=== PATIENT | male | born 1985 | race Caucasian/White ===

== ENCOUNTER 2016-11-01 18:07 | Emergency (ER) | payer OTHER ==
[2016-11-01] MEDS ORDERED: PROMETHAZINE HCL 25 MG TABLET PO ONE (19:11)
[2016-11-01] MEDS ORDERED: TRAMADOL HCL 50 MG TABLET PO ONE (19:11)
--- NOTE | 2016-11-01 19:13 | ER Document Report ---
ED Medical Screen (RME) - General Chief Complaint: Pain All Over Stated Complaint: BODY ACHES Notes: Patient says he's having pain that's starting at the lower back of his neck where he has a lump and the pain goes around to the front of his head and his jaw and his face and his arms and shoulders. These symptoms have been present for about a month. Patient has concerned that he has reoccurrence of a cancer that was diagnosed at that site 6 years ago when he lived in [place]. He says that he had chemotherapy for that lesion and is concerned that it is coming back. Patient has what appears to be a cyst on the back of his neck with definite fluctuance. Tender to the touch. Patient says that as a result of this lump on the back of his neck, he has " lost everything". Says that he has lost his job and everything. TRAVEL OUTSIDE OF THE [place] IN LAST 30 DAYS: No - Related Data Allergies/Adverse Reactions: No Known Allergies Allergy (Unverified 11/01/16 18:46) Past Medical History Renal/ Medical History: Denies: Hx Peritoneal Dialysis Physical Exam - Vital signs Vitals: Temp Pulse Resp BP Pulse Ox 98 F 73 17 145/80 H 100 11/01/16 18:46 11/01/16 18:46 11/01/16 18:46 11/01/16 18:46 11/01/16 18:46 Course - Vital Signs Vital signs: Temp Pulse Resp BP Pulse Ox 98 F 73 17 145/80 H 100 11/01/16 18:46 11/01/16 18:46 11/01/16 18:46 11/01/16 18:46 11/01/16 18:46
[2016-11-01 19:32] LABS: ABSOLUTE BASOPHILS # (AUTO) 0.1 10^3/uL (0.0-0.2); ABSOLUTE EOSINOPHILS # (AUTO) 0.1 10^3/uL (0.0-0.6); ABSOLUTE LYMPHOCYTES (AUTO) 2.1 10^3/uL (0.5-4.7); ABSOLUTE MONOCYTES (AUTO) 0.7 10^3/uL (0.1-1.4); ABSOLUTE NEUT (AUTO) 3.7 10^3/uL (1.7-8.2); BASOPHILS % (AUTO) 1.3 % (0-2); EOSINOPHILS % (AUTO) 1.4 % (0-6); HEMATOCRIT 45.2 % (37.9-51.0); HEMOGLOBIN 15.3 g/dL (13.5-17.0); HGB HCT DIFFERENCE 0.7; LYMPHOCYTES % (AUTO) 31.2 % (13-45); MEAN CORPUSCULAR HEMOGLOBIN 30.6 pg (27.0-33.4); MEAN CORPUSCULAR HGB CONC 33.8 g/dL (32.0-36.0); MEAN CORPUSCULAR VOLUME 91 fl (80-97); RED BLOOD COUNT 4.99 10^6/uL (4.35-5.55); RED CELL DISTRIBUTION WIDTH 13.8 % (11.5-14.0); SEGMENTED NEUTROPHILS % (AUTO) 55.1 % (42-78); WHITE BLOOD COUNT 6.7 10^3/uL (4.0-10.5)
[2016-11-01 19:36] LABS: APPEARANCE,URINE SLIGHTLY-CLOUDY; BILIRUBIN,URINE NEGATIVE (NEGATIVE); GLUCOSE, URINE NEGATIVE (NEGATIVE); KETONES,URINE TRACE mg/dL (NEGATIVE); LEUKOCYTE ESTERASE,URINE MODERATE (NEGATIVE); NITRITE,URINE NEGATIVE (NEGATIVE); PROTEIN,URINE NEGATIVE (NEGATIVE); URINE SPECIFIC GRAVITY 1.034; UROBILINOGEN,URINE NEGATIVE mg/dL (<2.0)
[2016-11-01 19:50] LABS: ALANINE AMINOTRANSFERASE 59 U/L (21-72); ALBUMIN 4.5 g/dL (3.5-5.0); ALKALINE PHOSPHATASE 59 U/L (38-126); ANION GAP 12 (5-19); ASPARTATE AMINO TRANSFERASE 36 U/L (17-59); BILIRUBIN,DIRECT 0.3 mg/dL (0.0-0.4); BILIRUBIN,TOTAL 0.6 mg/dL (0.2-1.3); BLOOD UREA NITROGEN 23 mg/dL (7-20); CALCIUM 9.4 mg/dL (8.4-10.2); CARBON DIOXIDE 26 mmol/L (22-30); CHLORIDE 104 mmol/L (98-107); CREATININE RESULT 0.94 mg/dL (0.52-1.25); GLUCOSE 94 mg/dL (75-110); POTASSIUM 4.2 mmol/L (3.6-5.0); SODIUM 141.9 mmol/L (137-145); TOTAL PROTEIN 6.9 g/dL (6.3-8.2)
[2016-11-01 19:53] LABS: URINE BARBITURATES SCREEN NEGATIVE; URINE METHADONE SCREEN NEGATIVE; URINE OPIATES LOW UNCONFIRMED POSITIVE; URINE PHENCYCLIDINE SCREEN NEGATIVE
[2016-11-01] MEDS ORDERED: LIDOCAINE 1% INJ-PF (10 MG/ML) 30 ML SDV INJ ONE (21:22)
[2016-11-01] MEDS ORDERED: DIPH/PERTUSS(ACELL)/TETANUS VAC/PF 0.5 ML SYR (>=10YO) IM ONE (21:23)
--- NOTE | 2016-11-01 22:10 | ER Document Report ---
ED General - General Chief Complaint: Pain All Over Stated Complaint: BODY ACHES Mode of Arrival: Ambulatory Information source: Patient Notes: 31 y/o M presents to ED c/o raised area of tenderness to right upper back/ lower neck. Reports first noticed it approximately 1 month ago and states has been increasing in size. Reports pain from area radiates to right upper shoulder and arm. Also reports has had generalized body aches, chills, and intermittent dysuria over the last week. Denies objective fever, chest pain, sob , back pain, penile discharge, testicular pain or swelling, n/v, flank pain, extremity weakness/numbness/tingling, saddle numbness or incontinence. States unknown last tetanus vaccination. 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 Denies surgical hx. Admits to occasional use of marijuana, cocaine, LSD, mushrooms, and marijuana. TRAVEL OUTSIDE OF THE [place] IN LAST 30 DAYS: No - HPI Onset/Duration: Gradual Quality of pain: Achy Severity: Moderate Pain Level: 3 Similar symptoms previously: Yes Recently seen / treated by doctor: No - Related Data Allergies/Adverse Reactions: No Known Allergies Allergy (Unverified 11/01/16 18:46) Past Medical History - General Information source: Patient - Social History Smoking Status: Current Every Day Smoker Frequency of alcohol use: Occasional Drug Abuse: Cocaine, Marijuana, Other Lives with: Friend Family History: Reviewed & Not Pertinent Patient has suicidal ideation: No Patient has homicidal ideation: No Renal/ Medical History: Denies: Hx Peritoneal Dialysis Malignancy Medical History: Reports Other Surgical Hx: Negative - Immunizations Hx Diphtheria, Pertussis, Tetanus Vaccination: Yes - unknown last Review of Systems - Review of Systems Constitutional: See HPI EENT: No symptoms reported Cardiovascular: No symptoms reported Respiratory: No symptoms reported Gastrointestinal: No symptoms reported Genitourinary: See HPI Male Genitourinary: No symptoms reported Musculoskeletal: See HPI Skin: See HPI Hematologic/Lymphatic: No symptoms reported Neurological/Psychological: No symptoms reported -: Yes All other systems reviewed and negative Physical Exam - Vital signs Vitals: Temp Pulse Resp BP Pulse Ox 98 F 73 17 145/80 H 100 11/01/16 18:46 11/01/16 18:46 11/01/16 18:46 11/01/16 18:46 11/01/16 18:46 - General General appearance: Appears well, Alert In distress: None - HEENT Head: Normocephalic, Atraumatic Eyes: Normal Conjunctiva: Normal Pupils: PERRL Tympanic membrane: Normal Sinus: Normal Nasal: Normal Mouth/Lips: Normal Mucous membranes: Normal, Moist Pharynx: Normal. No: Blood in hypopharynx, Erythema, Exudate, Peritonsillar abscess, Post nasal drainage, Retropharyngeal abscess, Tonsillar hypertrophy, Uvular edema, Potential airway comprom., Other Neck: Normal. No: Anterior cervical chain, Posterior cervical chain, Lymphadenopathy, Meningismus, Subcutaneous emphysema - Respiratory Respiratory status: No respiratory distress Chest status: Nontender Breath sounds: Normal Chest palpation: Normal - Cardiovascular Rhythm: Regular Heart sounds: Normal auscultation Murmur: No Pulses: Normal: Radial, Posterior tibial, Dorsalis pedis Normal capillary refill: Yes - Abdominal Inspection: Normal Distension: No distension Bowel sounds: Normal Tenderness: Nontender Organomegaly: No organomegaly - Back Back: Normal, Nontender - Full ROM with paresthesias or neurological deficits.. No: Tender, Deformity/step-off, CVA tenderness, Vertebra tenderness, Scars, Scoliosis, Wounds, Other - Extremities General upper extremity: Normal inspection, Nontender, Normal color, Normal ROM , Normal strength, Normal temperature. No: Edema General lower extremity: Normal inspection, Nontender, Normal color, Normal ROM , Normal strength, Normal temperature, Normal weight bearing. No: Edema, Debbie' s sign - Neurological Neuro grossly intact: Yes Cognition: Normal Orientation: AAOx4 Thompson Coma Scale Eye Opening: Spontaneous Thompson Coma Scale Verbal: Oriented Thompson Coma Scale Motor: Obeys Commands [place] Coma Scale Total: 15 Speech: Normal Cranial nerves: Normal Cerebellar coordination: Normal Motor strength normal: LUE, RUE, LLE, RLE Sensory: Normal - Psychological Associated symptoms: Normal affect, Normal mood - Skin Skin Temperature: Warm Skin Moisture: Dry Skin Color: Normal Skin irregularity: Abscess - pt has approximately 3 cm diameter raised slightly erythematous and tender area with fluctuance to upper back/right lower neck just lateral to spine. Not hard or fixed and does not appear to extend into spinal area. area is mobile and soft and although erythematous his neck is diffusely the same color appears to be due to prolonged sun exposure. Course - Re-evaluation Re-evalutation: 11/02/16 02:30 Patient hemodynamically stable, in no distress, afebrile, nontoxic. Tolerating oral fluids without difficulty or vomiting. Tdap updated. Lab results show moderate leukocyte Estrace and wbc's in UA, urine culture obtained. Chlamydia/ gonorrhea screen negative. Patient cyst-like area to posterior lower neck appears to be likely benign lipoma versus cyst as it is mobile, soft, and fluctuant with no localized erythema, warmth, cellulitis, or purulance suggestive of abscess. This was discussed with patient and he was encouraged to monitor it closely for changes or worsening and follow-up with dermatology and/ or surgicalist for further evaluation due to his reported hx of cancer although appears much less likely at this time. Will treat with course of Bactrim pending urine cultures. Pt appears stable for discharge and agrees with home care, follow-up, and ED return precautions. Social work will be consulted per nursing staff as patient reports he is currently homeless. - Vital Signs Vital signs: Temp Pulse Resp BP Pulse Ox 98 F 73 17 145/80 H 100 11/01/16 18:46 11/01/16 18:46 11/01/16 18:46 11/01/16 18:46 11/01/16 18:46 - Laboratory Result Diagrams: 11/01/16 19:15 11/01/16 19:15 Laboratory results interpreted by me: 11/01/16 11/01/16 19:15 19:20 BUN 23 H Urine Ketones TRACE H Ur Leukocyte Esterase MODERATE H Urine Ascorbic Acid 40 H - Diagnostic Test Radiology reviewed: Image reviewed, Reports reviewed Procedures - Incision and Drainage Posterior Neck Time completed: 23:30 Type: Simple Anesthetic type: 1% Lidocaine mL's of anesthetic: 2 I&D procedure: Betadine prep applied, Chlorprep applied Incision Method: Incision made with needle Amount/type of drainage: serous, clear. no purulent or bloody drainage Discharge - Discharge Clinical Impression: Subcutaneous cyst UTI (urinary tract infection) Qualifiers: Urinary tract infection type: site unspecified Hematuria presence: without hematuria Qualified Code(s): N39.0 - Urinary tract infection, site not specified Condition: Stable Disposition: HOME, SELF-CARE Instructions: Anti-Inflammatory Medication ([facility]), Cocaine Abuse ([facility]), Tetanus Immunization Given ([facility]), Trimethoprim-Sulfa ([facility]), Urinary Tract Infection ([facility] ), Growth or Mass, Pending Workup ([facility]) Additional Instructions: Your tests today show a likely urinary tract infection. A culture of your urine has been obtained. If bacterial growth is noted that requires a change in your antibiotic regimen you will be contacted within two days with instructions on treatment. If you do not receive a call, please call back for results. Your tests for chlamydia and gonorrhea were negative. Drink plenty of fluids. Follow-up with pattern worker/surgeon to evaluate the cyst on your neck. Follow-up with your primary care provider this week. Return to the Emergency Department for any worsening symptoms or concerns. Prescriptions: Naproxen [Naprosyn 375 Mg Tablet] 375 mg PO BIDP PRN #10 tablet PRN Reason: Sulfamethoxazole/Trimethoprim [Bactrim Ds Tablet] 1 tab PO BID 10 Days Forms: Elevated Blood Pressure Referrals: BARB CRISOSTOMO DO [ACTIVE STAFF] - Follow up in 3-5 days PRICE MCWILLIAMS MD [ACTIVE STAFF] - Follow up in 3-5 days [facility] [NO LOCAL MD] - Follow up tomorrow
[2016-11-02] MEDS ORDERED: NAPROXEN 250 MG TABLET PO ONE (00:05)
[2016-11-02 01:55] LABS: CHLAM PCR NOT DETECTED (NOT DETECT)
[2016-11-02] MEDS ORDERED: SULFAMETHOXAZOLE/TRIMETHOPRIM 800-160 MG TABLET PO ONE (02:34)
[2016-11-02 08:44] VITALS: BP 139/77
== END 2016-11-02 12:15 | disposition home or self-care (01) ==
LOC: ER 18:07
PROC: 0H94XZZ Drainage of Neck Skin, External Approach (ICD-10-PCS; principal; 2016-11-01)
DX: L72.3 Sebaceous cyst (principal); N39.0 Urinary tract infection, site not specified; R68.83 Chills (without fever); F17.200 Nicotine dependence, unspecified, uncomplicated; Z23 Encounter for immunization; Z59.0 Homelessness
CPT/HCPCS: 99284; 90471; 36415; 87086; 85025; 80053; 81001; 80307; 87491; 87591; 72050; 90715; 10060; J3490; A6266

== ENCOUNTER 2016-11-12 11:47 | Emergency (ER) | payer SELFPAY ==
[2016-11-12 12:00] VITALS: BP 123/79
== END 2016-11-12 12:30 | disposition left against medical advice (07) ==
LOC: ER 11:47
DX: Z53.21 Procedure and treatment not carried out due to patient leaving prior to being seen by health care provider (principal)

== ENCOUNTER 2016-11-19 01:21 | Emergency (ER) | payer SELFPAY ==
--- NOTE | 2016-11-19 02:00 | ER Document Report ---
ED General - General Chief Complaint: Suicidal Ideation Stated Complaint: PSYCH EVALUATION Notes: Patient is a 31-year-old male with past medical history of bipolar disorder and PTSD who presents with concerns of suicidal ideation. Patient states he has felt suicidal for many years but has never been this serious in the past. States that he plans to kill himself either by overdosing on heroin or jumping off a bridge. He is homeless, has no family in the area, no social safety net, he has lost his job, custody this child, and has no money. 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 He denies any acute medical complaints today. TRAVEL OUTSIDE OF THE [place] IN LAST 30 DAYS: No - Related Data Allergies/Adverse Reactions: No Known Allergies Allergy (Verified 11/19/16 01:26) Past Medical History - General Information source: Patient - Social History Smoking Status: Never Smoker Frequency of alcohol use: None Drug Abuse: None Lives with: Homeless Family History: Reviewed & Not Pertinent Patient has suicidal ideation: Yes Patient has homicidal ideation: No Renal/ Medical History: Denies: Hx Peritoneal Dialysis - Immunizations Hx Diphtheria, Pertussis, Tetanus Vaccination: Yes - unknown last Review of Systems - Review of Systems Notes: Constitutional: Negative for fever. HENT: Negative for sore throat. Eyes: Negative for visual changes. Cardiovascular: Negative for chest pain. Respiratory: Negative for shortness of breath. Gastrointestinal: Negative for abdominal pain, vomiting or diarrhea. Genitourinary: Negative for dysuria. Musculoskeletal: Negative for back pain. Skin: Negative for rash. Neurological: Negative for headaches, weakness or numbness. 10 point ROS negative except as marked above and in HPI. Physical Exam - Vital signs Vitals: Temp Pulse Resp BP Pulse Ox 97.7 F 70 20 135/92 H 100 11/19/16 01:26 11/19/16 01:26 11/19/16 01:26 11/19/16 01:11/19/16 01:26 Interpretation: Normal Notes: PHYSICAL EXAMINATION: GENERAL: Well-appearing, well-nourished and in no acute distress. HEAD: Atraumatic, normocephalic. EYES: Pupils equal round and reactive to light, extraocular movements intact, sclera anicteric, conjunctiva are normal. ENT: nares patent, oropharynx clear without exudates. Moist mucous membranes. NECK: Normal range of motion, supple without lymphadenopathy LUNGS: Breath sounds clear to auscultation bilaterally and equal. No wheezes rales or rhonchi. HEART: Regular rate and rhythm without murmurs ABDOMEN: Soft, nontender, normoactive bowel sounds. No guarding, no rebound. No masses appreciated. EXTREMITIES: Normal range of motion, no pitting or edema. No cyanosis. NEUROLOGICAL: No focal neurological deficits. Moves all extremities spontaneously and on command. PSYCH: Poor eye contact, stairs of the ground. Very depressed mood and affect. SKIN: Warm, Dry, normal turgor, no rashes or lesions noted. Course - Re-evaluation Re-evalutation: 11/19/16 01:57 Patient presents with suicidal ideation with a plan to kill himself by jumping off a bridge or overdosing on heroin. Patient appears very serious about this and I believe he is very high risk for completion of suicide. The patient states explicitly "I am going to kill myself. I hate this world and I don't want to be here anymore". He has a history of PTSD and bipolar and has not been on any medications for over 12 years. He has poor eye contact and appears extremely depressed on interview. He has no social resources, no local family, he is homeless, does not have a job. He has no capacity to follow-up as an outpatient. He has a clear plan and has thought it through. I do not feel this patient will be at any point safe for psychiatric clearance or discharged from this hospital. He should not be discharged unless it is to an inpatient facility. He denies any acute medical complaints. Screening laboratories will be sent. A medical screening exam is unremarkable. - Vital Signs Vital signs: Temp Pulse Resp BP Pulse Ox 97.7 F 70 20 135/92 H 100 11/19/16 01:26 11/19/16 01:26 11/19/16 01:26 11/19/16 01:26 11/19/16 01:26
[2016-11-19] MEDS ORDERED: DIAZEPAM 5 MG TABLET PO ONE ×2 (02:02→11:04)
[2016-11-19 02:48] LABS: ABSOLUTE BASOPHILS # (AUTO) 0.1 10^3/uL (0.0-0.2); ABSOLUTE EOSINOPHILS # (AUTO) 0.1 10^3/uL (0.0-0.6); ABSOLUTE MONOCYTES (AUTO) 0.7 10^3/uL (0.1-1.4); ABSOLUTE NEUT (AUTO) 3.3 10^3/uL (1.7-8.2); BASOPHILS % (AUTO) 1.1 % (0-2); EOSINOPHILS % (AUTO) 1.5 % (0-6); HEMATOCRIT 48.2 % (37.9-51.0); HEMOGLOBIN 16.7 g/dL (13.5-17.0); HGB HCT DIFFERENCE 1.9; LYMPHOCYTES % (AUTO) 32.2 % (13-45); MEAN CORPUSCULAR HEMOGLOBIN 31.2 pg (27.0-33.4); MEAN CORPUSCULAR HGB CONC 34.7 g/dL (32.0-36.0); MEAN CORPUSCULAR VOLUME 90 fl (80-97); MONOCYTES % (AUTO) 11.8 % (3-13); RED BLOOD COUNT 5.36 10^6/uL (4.35-5.55); RED CELL DISTRIBUTION WIDTH 14.1 % (11.5-14.0); SEGMENTED NEUTROPHILS % (AUTO) 53.4 % (42-78); WHITE BLOOD COUNT 6.2 10^3/uL (4.0-10.5)
[2016-11-19 03:09] LABS: ALANINE AMINOTRANSFERASE 45 U/L (21-72); ALBUMIN 4.9 g/dL (3.5-5.0); ALKALINE PHOSPHATASE 62 U/L (38-126); ANION GAP 13 (5-19); ASPARTATE AMINO TRANSFERASE 22 U/L (17-59); BILIRUBIN,DIRECT 0.3 mg/dL (0.0-0.4); BLOOD UREA NITROGEN 24 mg/dL (7-20); CALCIUM 9.9 mg/dL (8.4-10.2); CARBON DIOXIDE 28 mmol/L (22-30); CHLORIDE 100 mmol/L (98-107); CREATININE RESULT 1.01 mg/dL (0.52-1.25); GLUCOSE 102 mg/dL (75-110); POTASSIUM 4.6 mmol/L (3.6-5.0); SODIUM 141.1 mmol/L (137-145); TOTAL PROTEIN 7.5 g/dL (6.3-8.2)
[2016-11-19 03:10] LABS: ALCOHOL < 10 mg/dL (NONE DETECTED)
[2016-11-19 03:18] LABS: APPEARANCE,URINE CLEAR; BILIRUBIN,URINE NEGATIVE (NEGATIVE); GLUCOSE, URINE NEGATIVE (NEGATIVE); KETONES,URINE NEGATIVE (NEGATIVE); LEUKOCYTE ESTERASE,URINE TRACE (NEGATIVE); NITRITE,URINE NEGATIVE (NEGATIVE); PROTEIN,URINE NEGATIVE (NEGATIVE); URINE SPECIFIC GRAVITY 1.017; UROBILINOGEN,URINE NEGATIVE mg/dL (<2.0)
[2016-11-19 03:44] LABS: URINE BARBITURATES SCREEN NEGATIVE; URINE METHADONE SCREEN NEGATIVE; URINE OPIATES LOW NEGATIVE; URINE PHENCYCLIDINE SCREEN NEGATIVE
--- NOTE | 2016-11-19 10:23 | EKG REPORT ---
SEVERITY:- ABNORMAL ECG - SINUS RHYTHM CONSIDER ANTEROSEPTAL INFARCT : Confirmed by: Washington Cruz 19-Nov-2016 10:22:52
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
--- NOTE | 2016-11-19 20:34 | ER Document Report ---
Doctor's Note Notes: 11/19/16 20:33 As the rounding physician for our psychiatric patients, I have reviewed the chart, vitals, lab work. Patient has been examined and noted to be stable at this time . I am awaiting mental health in [place] regarding placement
--- NOTE | 2016-11-20 09:23 | ER Document Report ---
Doctor's Note Notes: 11/20/16 21:14 As the rounding physician for our psychiatric patients, I have reviewed the chart, vitals, lab work. Patient has been examined and noted to be mildly agitated and was given medication, I'm awaiting mental health disposition
[2016-11-20] MEDS ORDERED: DIAZEPAM 5 MG TABLET PO ONE (11:07)
[2016-11-20] MEDS ORDERED: HYDROXYZINE PAMOATE 50 MG CAPSULE PO ONE (14:41)
--- NOTE | 2016-11-20 18:02 | PSYCHOLOGICAL NOTE ---
Psych Note - Psych Note Psych Note: Patient today is irritable and again presents stating the local outpatient resources are insufficient to meet his needs. Patient is unable to reports what he thinks will assist him by going inpatient. Patient is alert and oriented. Patient's mood was euthymic with normal affect. Patient endorsed suicidal ideations and reports he would overdose on heroin and or jump off of a bridge. Neither of these means are accessible to the patient. Patient denies homicidal ideations. Patient further threatened to commit suicide in this parking lot if he gets referred to [facility]. Patient denies A/VH; delusions not noted. Thought processes were goal oriented towards going inpatient and guarded in regards to the fax of his life. Patient has made multiple requests for Valium. Conversational speech was WNL for rate, tone, and prosody. Intellectual abilities were estimated within low average range. Attention and focus were fair. Insight, judgment, impulse control were poor. Unspecified depressive disorder per history Patient is recommended for rescind IVC and discharged to follow-up i an outpatient provider. At this time it is felt the patient is attempting to meet his basic needs as well as feed his addiction habits through misuse of the emergency department and mental health systems. At this time it is felt the most appropriate plan of care is to coordinate services within the community for the patient. Patient has stated he cannot afford medications even off of the $4 list should he be prescribed them. At this time it would behoove the patient to be referred within the community, to obtain resources to assist with medication management through state-funded [facility]. Attempted to do so via business planner; however, patient terminated conversation and refused to accept referrals from that RN. At this time this department will no longer be seeking placement for this patient and it is not felt an appropriate plan of care. Patient requires assistance within the community he resides. Patient's needs at this time are social in nature. Patient reportedly followed up with various social security assessor agencies since his last discharge; however, he states they take too long. Should be noted there is no way to expedite services known to this clinician at this time. It is respectfully requested again that the use of narcotics and benzodiazepines be with held unless medically warranted do to it feeding and supporting his addicted habits. I have consulted with Dr. Hunt who is in agreement with the plan of care.
--- NOTE | 2016-11-21 14:47 | ER Document Report ---
Doctor's Note Notes: 11/21/16 14:44 As the rounding physician for our psychiatric patients, I have reviewed the chart, vitals, lab work. Patient has been examined and noted to be medically stable at this time . Patient continues to endorse active suicidal ideations. He states he is very frustrated and has nothing to live for and tells me he is thinking about jumping into traffic. Prior notes have been reviewed and there is some concern that patient has been noncompliant with the resources that have been given to him, as well as being manipulative and demanding. However, as he is still endorsing active suicidal ideation, will continue with psychiatric consultation. I am awaiting mental health in [facility] regarding placement.
--- NOTE | 2016-11-21 15:28 | PSYCHOLOGICAL NOTE ---
Psych Note - Psych Note Psych Note: Conducted check-in with the patient who is a 31-year-old male. Patient defiant towards discussing resources to in call clued calling [facility] to request case management assistance, and presenting to the homeless longterm. Patient adamant that he cannot go back there; however, when challenged regarding his reasoning he became defensive. Patient states he was only there for 3 days, but it is common for individuals to stay for 30 days with case management services. Patient states he has nothing to live for and will kill himself. Note, patient' s overall presentation is incongruent with extreme depression associated with suicide. Patient presents well groomed and interested in his physical appearance. Patient reports today to the M.D. that he "might as well kill himself in the room to show us he is serious." This is considered a manipulative tactic to remain in the department. Patient has additionally stated today that he thinks his best option now is to jump in front of a bus. What is known with individuals who do commit suicide, is that they have one plan that they are committed to, and often perseverate on. Research shows, individuals who are truly suicidal do not often have the energy to think of different options and plans. Patient at this time is unwilling to engage in alternative treatment planning. He just repeatedly states he needs a program. Patient continues to be nonspecific with his symptoms other than to say he is depressed. Patient does not present with flat affect. He does not present sad or tearful as often associated with some when he wants to by suicide. Patient has denied wanting to be started on an antidepressant to assist with his depression; however, has repeatedly requested Valium for nonspecific anxiety symptoms. Patient is alert and oriented mood is euthymic with normal affect patient reports suicidal ideations; however, does not commit to a specific plan, nor are the plans mentioned plausible. Patient denies homicidal ideations. Patient denies A/VH; delusions not noted. Thought processes were goal oriented towards remaining in the ER and or transferring to an inpatient unit. Conversational speech was WNL for rate, tone, and prosody. Attention and focus were fair. Insight, judgment, impulse control were poor. Unspecified depressive disorder Polysubstance abuse, per history Patient continues to be recommended for discharge and is considered psychiatrically cleared. As noted above, patient presents as though he is attempting to meet his basic needs through misuse and abuse of the emergency medical services as well as mental health system. Patient is unwilling to engage in treatment planning and states no services here in [place] are sufficient. Patient is unable or unwilling to report what an inpatient program will do for him. Patient has repeatedly declined an antidepressant, and only asked for Valium. I consulted with Dr. Hunt in regards to the care and management of this patient.
--- NOTE | 2016-11-22 09:38 | PSYCHOLOGICAL NOTE ---
Psych Note - Psych Note Psych Note: Conducted check-in with the patient who is a 31-year-old male. Patient states that he has not received any help; "you might as well just discharge me since no one is doing anything to help me." Clinician notes the patient has received resources and has refused to engage with social media content specialist discharge planning for further assistance. Patient disclosed that he has only been in the area for about a month. He was traveling from [place], [place], where he has lived all his life, to [place] for a job. He continued to disclose that he never made it there because he "blacked out and EMS brought him" to [facility]. He states he had a tumor on his neck that he did not receive treatment or any paperwork. Clinician notes the patient was seen on 11/01/2016. 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 He provided conflicting information to the attending physician when he then stated he took medication for 2 weeks and the "tumor" went away. During that visit he admitted to "occasional' use of marijuana, cocaine,LSD, and mushrooms. The attending physician discussed with the patient during that visit the "tumor" was most likely benign and to follow up with a business transformation manager. Patient was treated for UTI during that visit. First attempt at discharge, patient requested assistance because of a lack of resources stating he walked to [facility] (patient arrived EMS) Patient care note 0315. Patient did not take discharge paperwork as noted in discharge documentation on 11/02/2016 @ 1215. Patient states that he heard about [facility] after being discharged from [facility] on 11/01/2016, and they gave him medication that has helped reduce the size of his "tumor." It is noted the patient arrived to [facility] ED on 11/12/2016 by EMS and stated his medication was stolen then [facility]BS. Patient states duration of his suicidal thoughts has been "a couple of weeks; " clinician notes patient previously stated onset was gradual and the duration has been years (noted in Patient Care Triage Psych disorder/suicide 11/01/2016 note). Patient disclosed he called the crisis line and [employer] was called; he states [facility] brought him to [facility]. Clinician notes patient arrived in privately owned vehicle; as documented patient review visit summary. Clinician notes patient did not disclose suicidal ideation to any [facility] during previous two visits this month. Clinician contacted [facility], , he disclosed that he has known the patient 4 -5 years. He states they were roommate when they lived in [place]. He disclosed that he last spoke with the patient about a week ago and "he was in great shape, just homeless." The patient was with a "crazy girl" and ended up losing his housing. 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 He continued to state he has witness the patient have an anxiety attack and "it was horrible to watch" he was sweating, almost blacked out, and didn't know who I was." Patient is alert and oriented mood is euthymic with normal affect; it is noted the patient becomes agitation and irritable when questioned. patient reports suicidal ideations; however, does not commit to a specific plan, nor are the plans mentioned plausible. Patient denies homicidal ideations. Patient denies A/VH; delusions not noted. Thought processes is organized and liner. Thought content is goal oriented towards remaining in the ER and or transferring to an inpatient unit. Conversational speech was WNL for rate, tone, and prosody. Attention and focus were fair. Insight, judgment, impulse control were poor. 311 (F32.9) Unspecified depressive disorder Polysubstance abuse, per history Patient continues to be recommended for discharge and is considered psychiatrically cleared. As noted above, patient presents as though he is attempting to meet his basic needs through misuse and abuse of the emergency medical services as well as mental health system. Patient is unwilling to engage in treatment planning and states no services here in [place] are sufficient. Patient is unable or unwilling to report what an inpatient program will do for him. Patient has repeatedly declined an antidepressant, and only asked for Valium. Patient is noted to provide conflicting information on history to different [facility] staff i.e. stating he arrived by [facility] versus privately owned vehicle, Chemo versus 2 weeks of medication, onset/duration of Suicidal ideation, suicidal plan is noted to change. When asked questions to assist in guiding the patient in problem-solving, the patient is unable or unwilling to focus on solutions; it is noted the patient asks for assistance but then refused the assistance from social service discharge planning. I consulted with Dr. Hunt in regards to the care and management of this patient.
[2016-11-22] MEDS ORDERED: HYDROXYZINE PAMOATE 25 MG CAPSULE PO ONE (20:47)
[2016-11-22] MEDS ORDERED: DIAZEPAM 5 MG TABLET PO ONE (20:47)
--- NOTE | 2016-11-23 15:25 | ER Document Report ---
Doctor's Note Notes: 11/23/16 15:25 Patient seen and evaluated at the bedside he is not suicidal nor homicidal is ready to go home. Discharge planning is been discussed with them as well as multiple resources. At this time he is of sound mind and judgment with a GCS of 15 no neurological deficits and no medication in the system that would alter his mentality. He verbally states that he is not going to harm herself running around him at this moment in time he has been assessed by Dr. Hunt as not immediate threat to himself or others. He is going to be discharged resources per case management and discussed reasons for ED return sooner
--- NOTE | 2016-11-23 17:31 | ER Document Report ---
ED Psych Disorder / Suicide - General TRAVEL OUTSIDE OF THE [place] IN LAST 30 DAYS: No <CHRISTOPHER ENCINAS - Last Filed: 11/23/16 17:30> <MEAGHAN CARD - Last Filed: 11/23/16 19:00> - General Chief Complaint: Suicidal Ideation Stated Complaint: PSYCH EVALUATION - [facility] Notes: onducted check-in with the patient who is a 31-year-old male. Patient states that he has not received any help; "you might as well just discharge me since no one is doing anything to help me." Clinician notes the patient has received resources and has refused to engage with social media campaign manager discharge planning for further assistance. Patient disclosed that he has only been in the area for about a month. He was traveling from [place], [place], where he has lived all his life, to [place] for a job. He continued to disclose that he never made it there because he "blacked out and EMS brought him" to [facility]. He states he had a tumor on his neck that he did not receive treatment or any paperwork. Clinician notes the patient was seen on 11/01/2016. 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 He provided conflicting information to the attending physician when he then stated he took medication for 2 weeks and the "tumor" went away. During that visit he admitted to "occasional' use of marijuana, cocaine,LSD, and mushrooms. The attending physician discussed with the patient during that visit the "tumor" was most likely benign and to follow up with a inverted block operator. Patient was treated for UTI during that visit. First attempt at discharge, patient requested assistance because of a lack of resources stating he walked to [facility] (patient arrived EMS) Patient care note 0315. Patient did not take discharge paperwork as noted in discharge documentation on 11/02/2016 @ 1215. Patient states that he heard about [facility] after being discharged from [facility] on 11/01/2016, and they gave him medication that has helped reduce the size of his "tumor." It is noted the patient arrived to [facility] ED on 11/12/2016 by EMS and stated his medication was stolen then LWBS. Patient states duration of his suicidal thoughts has been "a couple of weeks; " clinician notes patient previously stated onset was gradual and the duration has been years (noted in Patient Care Triage Psych disorder/suicide 11/01/2016 note). Patient disclosed he called the crisis line and [employer] was called; he states [facility] brought him to [facility]. Clinician notes patient arrived in privately owned vehicle; as documented patient review visit summary. Clinician notes patient did not disclose suicidal ideation to any [facility] during previous two visits this month. Clinician contacted [facility], , he disclosed that he has known the patient 4 -5 years. He states they were roommate when they lived in [place]. He disclosed that he last spoke with the patient about a week ago and "he was in great shape, just homeless." The patient was with a "crazy girl" and ended up losing his housing. 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 He continued to state he has witness the patient have an anxiety attack and "it was horrible to watch" he was sweating, almost blacked out, and didn't know who I was." Patient is alert and oriented mood is euthymic with normal affect; it is noted the patient becomes agitation and irritable when questioned. patient reports suicidal ideations; however, does not commit to a specific plan, nor are the plans mentioned plausible. Patient denies homicidal ideations. Patient denies A/VH; delusions not noted. Thought processes is organized and liner. Thought content is goal oriented towards remaining in the ER and or transferring to an inpatient unit. Conversational speech was WNL for rate, tone, and prosody. Attention and focus were fair. Insight, judgment, impulse control were poor. 311 (F32.9) Unspecified depressive disorder Polysubstance abuse, per history Patient continues to be recommended for discharge and is considered psychiatrically cleared. As noted above, patient presents as though he is attempting to meet his basic needs through misuse and abuse of the emergency medical services as well as mental health system. Patient is unwilling to engage in treatment planning and states no services here in [place] are sufficient. Patient is unable or unwilling to report what an inpatient program will do for him. Patient has repeatedly declined an antidepressant, and only asked for Valium. Patient is noted to provide conflicting information on history to different [facility] staff i.e. stating he arrived by [facility] versus privately owned vehicle, Chemo versus 2 weeks of medication, onset/duration of Suicidal ideation, suicidal plan is noted to change. When asked questions to assist in guiding the patient in problem-solving, the patient is unable or unwilling to focus on solutions; it is noted the patient asks for assistance but then refused the assistance from social service discharge planning. I consulted with Dr. Hunt in regards to the care and management of this patient. (CHRISTOPHER ENCINAS) - Related Data Allergies/Adverse Reactions: No Known Allergies Allergy (Verified 11/19/16 01:26) Home Medications: Current Home Medications No Home Medications 11/19/16 [History] Past Medical History - General Information source: Patient - Social History Smoking Status: Never Smoker Chew tobacco use (# tins/day): No Frequency of alcohol use: None Drug Abuse: None Lives with: Homeless Family History: Reviewed & Not Pertinent Patient has suicidal ideation: Yes Patient has homicidal ideation: No Renal/ Medical History: Denies: Hx Peritoneal Dialysis Psychiatric Medical History: Reports: Hx Bipolar Disorder - Immunizations Hx Diphtheria, Pertussis, Tetanus Vaccination: Yes - unknown last <CHRISTOPHER ENCINAS - Last Filed: 11/23/16 17:30> Course - Laboratory Result Diagrams: 11/19/16 02:35 11/19/16 02:35 <CHRISTOPHER ENCINAS - Last Filed: 11/23/16 17:30> - Laboratory Result Diagrams: 11/19/16 02:35 11/19/16 02:35 <MEAGHAN CARD - Last Filed: 11/23/16 19:00> - Re-evaluation Re-evalutation: 11/23/16 18:55 Patient seen and evaluated at the bedside. He is awake alert with a GCS of 15 he 's had another psychiatric evaluation and which point they felt him to not need inpatient care he is not suicidal nor homicidal has been given a packet of information for follow-up. He does not have acute psychosis at this time he is not a threat to himself or others. He's been given outpatient resources I talked to him at least 4 times today where his temperament is been normal has not been any concerns. Discussed specifically with the reasons for ED return sooner (MEAGHAN CARD) - Vital Signs Vital signs: Temp Pulse Resp BP Pulse Ox 98.5 F 75 16 125/72 99 11/23/16 11:43 11/23/16 11:43 11/23/16 11:43 11/23/16 11:43 11/23/16 11:43 - Laboratory Laboratory results interpreted by me: 11/19/16 11/19/16 11/19/16 02:35 02:35 03:07 RDW 14.1 H BUN 24 H Ur Leukocyte Esterase TRACE H Salicylates < 1.0 L Acetaminophen < 10 L Discharge <CHRISTOPHER ENCINAS - Last Filed: 11/23/16 17:30> <MEAGHAN CARD - Last Filed: 11/23/16 19:00> - Discharge Clinical Impression: depression Condition: Stable Disposition: HOME, SELF-CARE Additional Instructions: DEPRESSION: Your evaluation reveals that you have mental depression. While symptoms may be vague, they often include disturbance of sleep, fatigue, loss of appetite , and general loss of interest in life. While depression may be a side effect of drugs, or a reaction to a major change in your life, many cases have no known cause. If depression is acute, and related to a major loss in your life, you can expect it to clear completely with time. If you have been depressed a long time , are prone to repeated bouts of depression or low mood, or have been thinking of suicide, get help. Depression can be treated with anti-depressant medication and counselling. Long-term depression will often take a few weeks to clear, even with appropriate medication. Follow-up care is important. SUICIDAL IDEATION: Suicidal ideation is a common medical term for thoughts about suicide, which may be as detailed as a formulated plan, without the suicidal act itself. Although most people who undergo suicidal ideation do not commit suicide, some go on to make suicide attempts. The range of suicidal ideation varies greatly from fleeting to detailed planning, role playing, and unsuccessful attempts. While thoughts about suicide are common, most people do not carry out serious actions to commit suicide. Based upon your evaluation and discussion with you, we do not believe you are currently at risk to act upon your thoughts of suicide. You have agreed to return to the Emergency Department, at any time , if you feel inclined to act upon your suicidal thoughts. FOLLOW-UP CARE: If you have been referred to a physician for follow-up care, call the physician s office for an appointment as you were instructed or within the next two days. If you experience worsening or a significant change in your symptoms, notify the physician immediately or return to the Emergency Department at any time for re-evaluation. Patient has been given a packet with information and resources from the psychiatric team and from case management. At this time is going to be discharged. Discussed reasons for ED return sooner
[2016-11-23 19:09] VITALS: BP 136/95
== END 2016-11-23 19:21 | disposition home or self-care (01) ==
LOC: ER 01:21
DX: R45.851 Suicidal ideations (principal); F31.9 Bipolar disorder, unspecified; F43.10 Post-traumatic stress disorder, unspecified
CPT/HCPCS: 36415; 80053; 80307; 81001; 85025; 93005; 93010; 99285

== ENCOUNTER 2017-01-21 20:12 | Emergency (ER) | payer OTHER ==
[2017-01-21 21:06] VITALS: BP 141/107
== END 2017-01-21 23:30 | disposition left against medical advice (07) ==
LOC: ER 20:12
DX: Z53.21 Procedure and treatment not carried out due to patient leaving prior to being seen by health care provider (principal)

== ENCOUNTER 2017-10-12 19:50 | Emergency (ER) | payer SELFPAY ==
[2017-10-12] MEDS ORDERED: IBUPROFEN 800 MG TABLET PO ONE (20:14)
[2017-10-12] MEDS ORDERED: LIDOCAINE 1% INJ-PF (10 MG/ML) 30 ML SDV INJ ONE (20:49)
--- NOTE | 2017-10-12 20:50 | ER Document Report ---
HPI - HPI Pain Level: 5 Context: Patient is a 32-year-old male who presents emergency department with left inguinal/scrotal pain, redness and swelling. Patient states that he noticed some discomfort yesterday but today he had significant 5 out of 5 pain. He admits to redness but denies any head or active drainage. He denies any previous history of abscesses, MRSA. Patient with a history of drug use but states that he has been cleaning this year. Not diabetic. Past Medical History - Social History Smoking Status: Current Every Day Smoker Family History: Reviewed & Not Pertinent Renal/ Medical History: Denies: Hx Peritoneal Dialysis Psychiatric Medical History: Reports: Hx Bipolar Disorder - Immunizations Hx Diphtheria, Pertussis, Tetanus Vaccination: Yes - unknown last Vertical Provider Document - CONSTITUTIONAL Agree With Documented VS: Yes Notes: PHYSICAL EXAM GENERAL: Alert, interacts well. EXTREMITIES: Moves all 4 extremities spontaneously. No edema, radial and dorsalis pedis pulses 2/4 bilaterally. No cyanosis. NEUROLOGICAL: Alert and oriented x4. Normal speech. PSYCH: Normal affect, normal mood. SKIN: Warm, dry, normal turgor. Left inguinal/scrotal abscess measuring 2 cm in diameter with surrounding induration and central fluctuance. Testicles nontender without edema. - INFECTION CONTROL TRAVEL OUTSIDE OF THE [place] IN LAST 30 DAYS: No - RESPIRATORY O2 Sat by Pulse Oximetry: 98 Course - Re-evaluation Re-evalutation: 10/12/17 21:16 Patient is a 32-year-old male who is hemodynamically stable, no acute distress and afebrile. Did consult with Dr. Monteiro who agrees that we can I&D this in the emergency department does not need surgical/urologic evaluation given the superficial location of the abscess. No concerns for Gama's gangrene. Presentation of a superficial left scrotal abscess. I&D performed at the bedside and irrigated with saline and iodoform packing placed. Patient to follow-up in 3 days for wound check and packing removal. Patient initiated on Bactrim and wound culture sent. Discussed strict return precautions and patient stable for discharge home - Vital Signs Vital signs: Temp Pulse Resp BP Pulse Ox 98.7 F 74 20 151/90 H 98 10/12/17 20:03 10/12/17 20:03 10/12/17 20:03 10/12/17 20:03 10/12/17 20:03 Procedures - Incision and Drainage Left Groin Type: Simple Anesthetic type: 1% Lidocaine mL's of anesthetic: 3 I&D procedure: Betadine prep applied Incision Method: Incision made by scalpel Discharge - Discharge Clinical Impression: Scrotal abscess Condition: Good Disposition: HOME, SELF-CARE Additional Instructions: Please return to the ER for a wound check in 3 days ABSCESS: You have an abscess (boil). This a pus-forming infection, usually due to staph. Some boils may be left to drain on their own, but most require lancing. From the time the tender lump first appears, it may be three or four days before the abscess is ready to shannan. Local heat and rest help at this stage of treatment. An antibiotic may prevent spread of the infection. Once the abscess is opened, packing may be placed into it. This is done so pus is not sealed inside by premature closure of the cavity. The packing will be removed at your follow-up visit or you may be advised to remove it yourself at home. Sometimes this packing must be replaced a few times during healing. The wound will heal with surprisingly little scar. Depending on the size and location of an abscess, healing can take one to four weeks. You may shower and wash the area around the incision site two or three times a day. Antibiotics may be prescribed, but are usually not necessary after an abscess has been drained. If you develop fever, chills, worsening pain, or increasing swelling in the area, call the doctor or return immediately. POST INCISION AND DRAINAGE: You have had an incision made to allow drainage of an abscess. The incision must remain open so that pus and debris can drain from the wound. If the abscess cavity is large, packing is placed. This keeps the tissues from collapsing and trapping pus inside, while the body shrinks the cavity. The packing may need to be replaced every day or two. The physician will instruct you on the packing. Keep a bulky dressing over the area. Replace it if it becomes saturated with blood or pus. Do not disturb the packing (if present). You may shower and cleanse the area with gentle soap and warm water two or three times a day. Local warmth may be soothing, and may promote faster healing. Return if you develop high fever or chills, or if you note spreading redness, increasing swelling, or increasing tenderness. MRSA CELLULITIS: You have an infection of your skin and underlying soft tissues called cellulitis. This is due to bacteria, which can enter through any break in the skin, or even through an irritated hair follicle. Untreated, cellulitis will usually worsen and may form an abscess which requires draining. Although many bacterial organisms can cause cellulitis and abscess formations, the most likely bacteria is Methicillin-Resistant Staph Aureus, or MRSA for short. Antibiotics are required. Usually, warm packs or warm soaks, and elevation of the infected area are recommended. You should start getting better within 24 to 36 hours. Most infections respond quickly to the right medication. Follow-up care is important, however, to check for abscess (boil) formation, unsuspected foreign body, or resistant infection. If you develop fever, chills, or if the area of infection is becoming rapidly more swollen or painful, call the doctor at once. TRIMETHOPRIM-SULFA: You have been given a prescription for trimethoprim-sulfa (TMS, Septra, Bactrim). This is a combination antibiotic of the sulfa class, often used for urinary tract infections, middle ear infections, bronchitis, shigella intestinal infection, and Pneumocystis pneumonia. TMS is usually well-tolerated. Occasional side effects include nausea and decreased appetite. Septra is not recommended for infants less than two months of age. Do not take this medication if you have experienced severe side effects or allergy to sulfa medicine. You should stop this medicine at once and contact your physician if you develop any rash, joint pain, shortness of breath, bruising, or jaundice ( yellow color in the skin), or if you develop any other new or unusual symptoms. FOLLOW-UP CARE: Most simple abscesses will not require a follow up visit. If you had packing placed in the abscess, remove it as instructed by the physician. If you have been referred to a physician for follow-up care, call the physicians office for an appointment as you were instructed or within the next two days. If you experience worsening or a significant change in your symptoms, return to the Emergency Department at any time for re-evaluation. Prescriptions: Ibuprofen [Motrin 800 mg Tablet] 800 mg PO Q8H PRN #30 tab PRN Reason: Sulfamethoxazole/Trimethoprim [Bactrim Ds Tablet] 1 each PO BID #20 tablet Forms: Return to Work
--- NOTE | 2017-10-12 20:52 | RADIOLOGY REPORT (SQ) ---
EXAM DESCRIPTION: U/S SCROTUM W/O DOPPLER COMPLETED DATE/TIME: 10/12/2017 8:39 pm REASON FOR STUDY: left inguinal abscess COMPARISON: None. TECHNIQUE: Ultrasound of the left inguinal region was performed, with color flow, grayscale, and jens e loop images LIMITATIONS: None. FINDINGS: In the left inguinal region in the area of palpable abnormality, a hypoechoic 1.4 x 1.5 x 1.3 cm lymph node is present with heterogeneous echogenicity, small amount of fluid within the lymph node, and increased color flow within and surrounding the node. Findings are worrisome for infected or inflamed inguinal lymph node. Limited cine loop images of the remainder the inguinal region demonstrates no evidence of inguinal he rnia. Question varices along the spermatic cord. Very limited view of the scrotum on the cine loop images are unremarkable. IMPRESSION: 1.4 x 1.5 x 1.3 cm probable inflamed or infected left inguinal lymph node. TECHNICAL DOCUMENTATION: JOB ID: [id number] [employer]- All Rights Reserved Reading location - IP/workstation name: [email or web address]
[2017-10-12 21:31] VITALS: BP 146/84
== END 2017-10-12 21:30 | disposition home or self-care (01) ==
LOC: ER 19:50
PROC: 0H9AXZZ Drainage of Inguinal Skin, External Approach (ICD-10-PCS; principal; 2017-10-12)
DX: N49.2 Inflammatory disorders of scrotum (principal); N50.82 Scrotal pain
CPT/HCPCS: 99283; 87070; 87205; 87075; 76870; 55100; A6266

== ENCOUNTER 2017-10-15 12:01 | Emergency (ER) | payer SELFPAY ==
[2017-10-15 12:06] VITALS: BP 136/78
--- NOTE | 2017-10-15 12:55 | ER Document Report ---
HPI - HPI Patient complains to provider of: abscess recheck Onset: Last week Onset/Duration: Better Quality of pain: Achy Severity: Mild Pain Level: 1 Associated Symptoms: Other - Abscess I&D 10/12/2017 Exacerbated by: Walking Relieved by: Denies Similar symptoms previously: Yes Recently seen / treated by doctor: Yes - ROS ROS below otherwise negative: Yes - CONSTITUTIONAL Constitutional: DENIES: Fever, Chills - EENT EENT: DENIES: Sore Throat, Ear Pain, Nasal Drainage-Clear, Nasal Drainage- Purulent, Congestion, Eye problems - NEURO Neurology: DENIES: Headache, Weakness, Vision blurred, Dizzinesss / Vertigo - CARDIOVASCULAR Cardiovascular: DENIES: Chest pain - RESPIRATORY Respiratory: DENIES: Trouble Breathing, Coughing - GASTROINTESTINAL Gastrointestinal: DENIES: Abdominal Pain, Nausea, Patient vomiting, Diarrhea, Constipation, Black / Bloody Stools - URINARY Urinary: DENIES: Dysuria, Urgency, Frequency - REPRODUCTIVE Reproductive: DENIES: :, Postmenopausal, Abnormal bleeding / discharge - MUSCULOSKELETAL Musculoskeletal: DENIES: Extremity pain, Back Pain, Neck Pain, Swelling - DERM Skin Color: Other - Abscesses healing, no redness no drainage, and minimal pain Skin Problems: Open to Air Past Medical History - General Information source: Patient - Social History Smoking Status: Current Every Day Smoker Cigarette use (# per day): Yes Chew tobacco use (# tins/day): No Smoking Education Provided: Yes - 4 minutes Frequency of alcohol use: None Drug Abuse: None Lives with: Spouse/Significant other Family History: Reviewed & Not Pertinent Patient has suicidal ideation: No Patient has homicidal ideation: No - Past Medical History Cardiac Medical History: Reports: None Pulmonary Medical History: Reports: None EENT Medical History: Reports: None Neurological Medical History: Reports: None Endocrine Medical History: Reports: None Renal/ Medical History: Reports: None Malignancy Medical History: Reports None GI Medical History: Reports: None Musculoskeltal Medical History: Reports Hx Musculoskeletal Trauma Skin Medical History: Reports Hx Cellulitis Psychiatric Medical History: Reports: Hx Bipolar Disorder Traumatic Medical History: Reports: None Infectious Medical History: Reports: None Surgical Hx: Negative Past Surgical History: Reports: None - Immunizations Hx Diphtheria, Pertussis, Tetanus Vaccination: Yes - unknown last Vertical Provider Document - CONSTITUTIONAL Agree With Documented VS: Yes Exam Limitations: No Limitations - INFECTION CONTROL TRAVEL OUTSIDE OF THE [place] IN LAST 30 DAYS: No - HEENT HEENT: Atraumatic, Normal ENT Exam, Normocephalic, PERRLA - RESPIRATORY Respiratory: Breath Sounds Normal, No Respiratory Distress, Chest Non-Tender - CARDIOVASCULAR Cardiovascular: Regular Rate, Regular Rhythm - GI/ABDOMEN Gastrointestinal: Abdomen Soft, Abdomen Non-Tender, No Organomegaly, Normal Bowel Sounds - BACK Back: Normal Inspection - DERM Integumentary: Abscess - Abscess I&D/d on 10/12/2017. Site healing well no drainage no redness no signs of inflammation. Patient has minimal pain. Patient taken antibiotics as per prescription according to patient. Course - Vital Signs Vital signs: Temp Pulse Resp BP Pulse Ox 98.4 F 69 14 136/78 H 100 10/15/17 12:05 10/15/17 12:05 10/15/17 12:05 10/15/17 12:05 10/15/17 12:05 Discharge - Discharge Clinical Impression: Abscess re-check Condition: Stable Disposition: HOME, SELF-CARE Instructions: Family Physicians / Practices Additional Instructions: ABSCESS: You have an abscess (boil). This a pus-forming infection, usually due to staph. Some boils may be left to drain on their own, but most require lancing. From the time the tender lump first appears, it may be three or four days before the abscess is ready to shannan. Local heat and rest help at this stage of treatment. An antibiotic may prevent spread of the infection. Once the abscess is opened, packing may be placed into it. This is done so pus is not sealed inside by premature closure of the cavity. The packing will be removed at your follow-up visit or you may be advised to remove it yourself at home. Sometimes this packing must be replaced a few times during healing. The wound will heal with surprisingly little scar. Depending on the size and location of an abscess, healing can take one to four weeks. You may shower and wash the area around the incision site two or three times a day. Antibiotics may be prescribed, but are usually not necessary after an abscess has been drained. If you develop fever, chills, worsening pain, or increasing swelling in the area, call the doctor or return immediately. Epsom Salt Soaks Soak the wound area in a container of warm epsom salt water. If you can't get the wound area into a bucket or gusman, use a folded towel soaked in the epsom salt solution and apply to the area. Use clean hot tap water (about the temperature of a very warm bath), mixing in about one (1) teaspoon for every pint of water. Two gallon --> 16 teaspoons Epsom Salts One gallon --> 8 teaspoons Epsom Salts Two quarts --> 4 teaspoons Epsom Salts One quart --> 2 teaspoons Epsom Salts Soak the wound for about 20 minutes while gently moving it around in the water. Repeat this four (4) times a day. FOLLOW-UP CARE: Most simple abscesses will not require a follow up visit. If you had packing placed in the abscess, remove it as instructed by the physician. If you have been referred to a physician for follow-up care, call the physicians office for an appointment as you were instructed or within the next two days. If you experience worsening or a significant change in your symptoms, return to the Emergency Department at any time for re-evaluation. Forms: Elevated Blood Pressure, Return to Work, Smoking Cessation Education
== END 2017-10-15 13:05 | disposition home or self-care (01) ==
LOC: ER 12:01
DX: L02.91 Cutaneous abscess, unspecified (principal); F17.210 Nicotine dependence, cigarettes, uncomplicated; Z71.6 Tobacco abuse counseling
CPT/HCPCS: 99282; 99406

== ENCOUNTER 2019-05-23 18:13 | Emergency (ER) | payer SELFPAY ==
[2019-05-23 18:18] VITALS: BP 172/88
[2019-05-23] MEDS ORDERED: HYDROCODONE/ACETAMINOPHEN 5-325 MG (6 TAB/ER DISP) PO PRN (18:57)
[2019-05-23] MEDS ORDERED: HYDROCODONE/ACETAMINOPHEN 5-325 MG TABLET PO ONE (18:57)
--- NOTE | 2019-05-23 18:57 | ER Document Report ---
HPI - HPI Time Seen by Provider: 05/23/19 18:50 Context: Patient is a 33-year-old male presents to the emergency department with a chief complaint of left upper dental pain. Patient reports this is been present for about 1 week. Patient reports he did see a dentist yesterday and was placed on amoxicillin and 800 mg ibuprofen. Patient reports continued dental pain. Patient states that he would not remove his tooth as he did have an infection and that his blood pressure was elevated. Patient reports he feels like his blood pressure is elevated because he is in severe pain. Patient denies fever, facial swelling, difficulty breathing or swallowing. Patient states he has had multiple dental caries in the past but never this painful. - REPRODUCTIVE Reproductive: DENIES: : Past Medical History - General Information source: Patient - Social History Smoking Status: Unknown if Ever Smoked Lives with: Family Family History: Reviewed & Not Pertinent - Past Medical History Cardiac Medical History: Reports: None Pulmonary Medical History: Reports: None EENT Medical History: Reports: None Neurological Medical History: Reports: None Endocrine Medical History: Reports: None Renal/ Medical History: Reports: None. Denies: Hx Peritoneal Dialysis Malignancy Medical History: Reports None GI Medical History: Reports: None Musculoskeletal Medical History: Reports Hx Musculoskeletal Trauma Skin Medical History: Reports Hx Cellulitis Psychiatric Medical History: Reports: Hx Bipolar Disorder Traumatic Medical History: Reports: None Infectious Medical History: Reports: None - Immunizations Hx Diphtheria, Pertussis, Tetanus Vaccination: Yes - unknown last Vertical Provider Document - CONSTITUTIONAL Agree With Documented VS: Yes Exam Limitations: No Limitations General Appearance: No Apparent Distress - INFECTION CONTROL TRAVEL OUTSIDE OF THE [place] IN LAST 30 DAYS: No - HEENT HEENT: Atraumatic, Normocephalic Mouth Diagram: 1 - Broken tooth, no palpable abscess, no buccal swelling. - NECK Neck: Normal Inspection - RESPIRATORY Respiratory: Breath Sounds Normal, No Respiratory Distress - CARDIOVASCULAR Cardiovascular: Regular Rate, Regular Rhythm - GI/ABDOMEN Gastrointestinal: Abdomen Soft, Abdomen Non-Tender - NEURO Level of Consciousness: Awake, Alert, Appropriate - DERM Integumentary: Warm, Dry Course - Vital Signs Vital signs: Temp Pulse Resp BP Pulse Ox 98.2 F 71 18 172/88 H 100 05/23/19 18:16 05/23/19 18:16 05/23/19 18:16 05/23/19 18:16 05/23/19 18:16 Discharge - Discharge Clinical Impression: Dental infection Condition: Stable Disposition: HOME, SELF-CARE Instructions: Oral Narcotic Medication ([facility]), Toothache ([facility]) Additional Instructions: Today you are seen in emergency department for dental pain. You were started on amoxicillin and 800 mg ibuprofen by her dentist yesterday. Typically symptoms do improve within the next 24 to 48 hours. Please continue take your ant ibiotics as prescribed. I will give you a few pain pills to go home with to get you through the weekend. Please keep your follow-up appointment with them on Saturday. Please return the emergency department if you develop significant facial swelling, pain that is uncontrolled, fever, difficulty breathing or swallowing. *Do not drive or operate heavy machinery while on this medication. Dental Infection or Abscess You have an infection, perhaps an abscess (pus formation) of the gum around one of your teeth, which is probably decayed. If there is an abscess, it may drain on its own or it may need to be opened or lanced. Severe swelling or drainage around a tooth usually means a deep dental abscess which usually requires evaluation and treatment by a dentist or oral surgeon. Antibiotics may be prescribed while awaiting dental treatment. If you develop high fever with chills, worsening pain, or increasing swelling in the area, see a dentist or oral surgeon immediately or return to the Emergency Department immediately.
== END 2019-05-23 19:31 | disposition home or self-care (01) ==
LOC: ER 18:13
DX: K04.7 Periapical abscess without sinus (principal); K08.89 Other specified disorders of teeth and supporting structures; R03.0 Elevated blood-pressure reading, without diagnosis of hypertension
CPT/HCPCS: 99282

== ENCOUNTER 2019-07-05 13:47 | Emergency (ER) | payer SELFPAY ==
[2019-07-05] MEDS ORDERED: CEPHALEXIN 500 MG CAPSULE PO ONE (14:12)
[2019-07-05] MEDS ORDERED: SULFAMETHOXAZOLE/TRIMETHOPRIM 800-160 MG TABLET PO ONE (14:12)
[2019-07-05] MEDS ORDERED: IBUPROFEN 800 MG TABLET PO ONE (14:16)
--- NOTE | 2019-07-05 14:19 | ER Document Report ---
ED Skin Rash/Insect Bite/Abscs - General Mode of Arrival: Ambulatory Information source: Patient TRAVEL OUTSIDE OF THE [place] IN LAST 30 DAYS: No - HPI Patient complains to provider of: Tender/swollen area Onset: Other Onset/Duration: Gradual - Several days Quality of pain: Sharp, Throbbing Severity: Moderate Pain Level: 3 Skin Character: Abscess Quality of rash: Painful Identify cause: No Exacerbated by: Denies Relieved by: Denies Similar symptoms previously: No Recently seen / treated by doctor: Yes - General Chief Complaint: Abscess Stated Complaint: NECK PAIN Time Seen by Provider: 07/05/19 14:10 Primary Care Provider: [facility] [Provider Group] - Follow up as needed [facility] [Provider Group] - Follow up as needed [facility] [Provider Group] - Follow up as needed Notes: 33-year-old male presents to ED for complaint of a large knot to the back of his neck. He states he had a abscessed tooth about a month ago took his antibiotics went to the oral surgeon they did take out his tooth. He states this not developed over the last couple days. He is alert oriented respirations regular nonlabored speaking in full sentences walks with even steady gait. (SIMRAN PEREZ) - Related Data Allergies/Adverse Reactions: No Known Allergies Allergy (Verified 07/05/19 14:01) Past Medical History - General Information source: Patient - Social History Smoking Status: Current Every Day Smoker Cigarette use (# per day): Yes - Half pack a day Smoking Education Provided: Yes - 4 minutes Frequency of alcohol use: Heavy - Several beers a day Drug Abuse: None Occupation: [place] Lives with: Alone Family History: Reviewed & Not Pertinent Patient has suicidal ideation: No Patient has homicidal ideation: No - Past Medical History Cardiac Medical History: Reports: None Pulmonary Medical History: Reports: None EENT Medical History: Reports: None Neurological Medical History: Reports: None Endocrine Medical History: Reports: None Renal/ Medical History: Reports: None Malignancy Medical History: Reports None GI Medical History: Reports: None Musculoskeletal Medical History: Reports Hx Musculoskeletal Trauma Skin Medical History: Reports Hx Cellulitis Psychiatric Medical History: Reports: Hx Bipolar Disorder Traumatic Medical History: Reports: None Infectious Medical History: Reports: None Past Surgical History: Reports: Hx Oral Surgery - [place] teeth - Immunizations Hx Diphtheria, Pertussis, Tetanus Vaccination: Yes - unknown last Review of Systems - Review of Systems Constitutional: No symptoms reported EENT: No symptoms reported Cardiovascular: No symptoms reported Respiratory: No symptoms reported Gastrointestinal: No symptoms reported Genitourinary: No symptoms reported Male Genitourinary: No symptoms reported Musculoskeletal: No symptoms reported Skin: Other - Large abscess to the back of the neck Hematologic/Lymphatic: No symptoms reported Neurological/Psychological: No symptoms reported -: Yes All other systems reviewed and negative Physical Exam - Vital signs Interpretation: Normal - General General appearance: Appears well, Alert - HEENT Head: Normocephalic, Atraumatic Eyes: Normal Pupils: PERRL - Respiratory Respiratory status: No respiratory distress Chest status: Nontender Breath sounds: Normal Chest palpation: Normal - Cardiovascular Rhythm: Regular Heart sounds: Normal auscultation Murmur: No - Abdominal Inspection: Normal Distension: No distension Bowel sounds: Normal Tenderness: Nontender Organomegaly: No organomegaly - Back Back: Normal, Nontender - Extremities General upper extremity: Normal inspection, Nontender, Normal color, Normal ROM, Normal temperature General lower extremity: Normal inspection, Nontender, Normal color, Normal ROM, Normal temperature, Normal weight bearing. No: Debbie's sign - Neurological Neuro grossly intact: Yes Cognition: Normal Orientation: AAOx4 [place] Coma Scale Eye Opening: Spontaneous [place] Coma Scale Verbal: Oriented [place] Coma Scale Motor: Obeys Commands [place] Coma Scale Total: 15 Speech: Normal Motor strength normal: LUE, RUE, LLE, RLE Sensory: Normal - Psychological Associated symptoms: Normal affect, Normal mood - Skin Skin Temperature: Warm Skin Moisture: Dry Skin Color: Normal Skin irregularity: Abscess Location of irregularity: Neck Character of irregularity: Erythematous Irregularity with: Swelling, Tenderness, Warmth - Vital signs Vitals: Temp Pulse Resp BP Pulse Ox 98.7 F 87 16 143/82 H 100 07/05/19 14:12 07/05/19 14:12 07/05/19 14:12 07/05/19 14:12 07/05/19 14:12 Course - Re-evaluation Re-evalutation: 07/05/19 19:31 I did personally see and examined this patient in conjunction with nurse practitioner Padmini Perez. Patient has a swollen area to the back of his neck that he states suddenly swelled significantly more than usual and became more tender than usual. It is tender to palpation, warm and fluctuant. Consistent with abscess. Incised and drained and irrigated by nurse practit jose j Perez. Discussed with patient that it could represent a sebaceous cyst that has become infected. Patient will follow with surgery or dermatology as an outpatient to see about having this removed permanently after healing is complete. (AYUSH SPENCER) - Vital Signs Vital signs: Temp Pulse Resp BP Pulse Ox 98.4 F 84 16 140/80 H 100 07/05/19 15:13 07/05/19 15:13 07/05/19 15:13 07/05/19 15:13 07/05/19 15:13 Procedures - Incision and Drainage Posterior Neck Time completed: 15:01 Type: Simple Anesthetic type: 1% Lidocaine mL's of anesthetic: 5 I&D procedure: Shurclens applied Incision Method: Incision made by scalpel Amount/type of drainage: Large amount purulent drainage Discharge - Discharge Clinical Impression: abscess posterior neck Condition: Stable Disposition: HOME, SELF-CARE Additional Instructions: ABSCESS: You have an abscess (boil). This a pus-forming infection, usually due to staph. Some boils may be left to drain on their own, but most require lancing. From the time the tender lump first appears, it may be three or four days before the abscess is ready to shannan. Local heat and rest help at this stage of treatment. An antibiotic may prevent spread of the infection. Once the abscess is opened, packing may be placed into it. This is done so pus is not sealed inside by premature closure of the cavity. The packing will be removed at your follow-up visit or you may be advised to remove it yourself at home. Sometimes this packing must be replaced a few times during healing. The wound will heal with surprisingly little scar. Depending on the size and location of an abscess, healing can take one to four weeks. You may shower and wash the area around the incision site two or three times a day. Antibiotics may be prescribed, but are usually not necessary after an abscess has been drained. If you develop fever, chills, worsening pain, or increasing swelling in the area, call the doctor or return immediately. POST INCISION AND DRAINAGE: You have had an incision made to allow drainage of an abscess. The incision must remain open so that pus and debris can drain from the wound. If the abscess cavity is large, packing is placed. This keeps the tissues from collapsing and trapping pus inside, while the body shrinks the cavity. The packing may need to be replaced every day or two. The physician will instruct you on the packing. Keep a bulky dressing over the area. Replace it if it becomes saturated with blood or pus. Do not disturb the packing (if present). You may shower and cleanse the area with gentle soap and warm water two or three times a day. Local warmth may be soothing, and may promote faster h ealing. Return if you develop high fever or chills, or if you note spreading redness, increasing swelling, or increasing tenderness. CEPHALEXIN: The antibiotic you've been prescribed is a member of the cephalosporin class. This type of antibiotic covers a wide variety of infections, including those of the skin, lungs, and urinary tract. It's useful for staph infections. This antibiotic is slightly similar to the penicillin family. In rare cases, a person who is allergic to penicillin will also be allergic to this medication. If you have had a severe allergic reaction to penicillin, and have not taken this antibiotic since that time, notify your doctor. Antibiotics which cover many germs ("broad spectrum" antibiotics) are more likely to cause diarrhea or "yeast" infections. Women prone to vaginal yeast problems may suffer an attack after taking this antibiotic. In infants, oral thrush (white spots "stuck" on the cheek) or yeast diaper rash may result. See your doctor if these problems occur. Call at once if you develop itching, hives, shortness of breath, or lightheadedness. TRIMETHOPRIM-SULFA: You have been given a prescription for trimethoprim-sulfa (TMS, Septra, Bactrim). This is a combination antibiotic of the sulfa class, often used for urinary tract infections, middle ear infections, bronchitis, shigella intestinal infection, and Pneumocystis pneumonia. TMS is usually well-tolerated. Occasional side effects include nausea and decreased appetite. Septra is not recommended for infants less than two months of age. Do not take this medication if you have experienced severe side effects or allergy to sulfa medicine. You should stop this medicine at once and contact your physician if you develop any rash, joint pain, shortness of breath, bruising, or jaundice (yellow color in the skin), or if you develop any other new or unusual symptoms. Epsom Salt Soaks Soak the wound area in a container of warm epsom salt water. If you can't get the wound area into a bucket or gusman, use a folded towel soaked in the epsom salt solution and apply to the area. Use clean hot tap water (about the temperature of a very warm bath), mixing in about one (1) teaspoon for every pint of water. Two gallon --> 16 teaspoons Epsom Salts One gallon --> 8 teaspoons Epsom Salts Two quarts --> 4 teaspoons Epsom Salts One quart --> 2 teaspoons Epsom Salts Soak the wound for about 20 minutes while gently moving it around in the water. Repeat this four (4) times a day. FOLLOW-UP CARE: Most simple abscesses will not require a follow up visit. If you had packing placed in the abscess, remove it as instructed by the physician. If you have been referred to a physician for follow-up care, call the physicians office for an appointment as you were instructed or within the next two days. If you experience worsening or a significant change in your symptoms, return to the Emergency Department at any time for re-evaluation. Prescriptions: Sulfamethoxazole/Trimethoprim [Bactrim Ds Tablet] 1 each PO BID #20 tablet Cephalexin Monohydrate [Keflex 500 mg Capsule] 500 mg PO Q6H 5 Days capsule Forms: Elevated Blood Pressure, Smoking Cessation Education, Return to Work Referrals: [facility] [Provider Group] - Follow up as needed [facility] [Provider Group] - Follow up as needed [facility] [Provider Group] - Follow up as needed
[2019-07-05 15:14] VITALS: BP 140/80
== END 2019-07-05 15:13 | disposition home or self-care (01) ==
LOC: ER 13:47
DX: L02.11 Cutaneous abscess of neck (principal); F17.210 Nicotine dependence, cigarettes, uncomplicated; Z71.6 Tobacco abuse counseling
CPT/HCPCS: 99406; 99283; 87070; 87205; 87077; 10060; A6266; 87186